=== PATIENT | female | born 1970 | race Caucasian/White ===

== ENCOUNTER → 2018-01-05 | Outpatient (CLI) | payer OTHER | LOC: PT 08:13 → EDSTATUS 08:30 → PT 08:30 | DX: Z01.818 Encounter for other preprocedural examination (principal); M25.561 Pain in right knee; M67.461 Ganglion, right knee ==

== ENCOUNTER 2018-02-18 08:00 | Outpatient (RCR) | payer OTHER | END 2018-02-18 08:30 | disposition home or self-care (01) | LOC: PT 08:00 | DX: Z47.89 Encounter for other orthopedic aftercare (principal) ==

== ENCOUNTER → 2018-05-25 | Outpatient (CLI) | payer OTHER | LOC: MAMMO 07:57 | DX: Z12.31 Encounter for screening mammogram for malignant neoplasm of breast (principal); Z98.890 Other specified postprocedural states ==

== ENCOUNTER → 2018-07-04 | Day surgery (SDC) | payer OTHER | LOC: MSO 07:45 | DX: Z12.11 Encounter for screening for malignant neoplasm of colon (principal); K63.5 Polyp of colon; F17.210 Nicotine dependence, cigarettes, uncomplicated | CPT/HCPCS: 00811; J2704; J7120 ==

== ENCOUNTER → 2019-02-13 | Day surgery (SDC) | payer OTHER | LOC: MSO 06:59 | DX: L02.31 Cutaneous abscess of buttock (principal); Z90.710 Acquired absence of both cervix and uterus; F17.210 Nicotine dependence, cigarettes, uncomplicated; Z88.6 Allergy status to analgesic agent; Z88.0 Allergy status to penicillin; Z91.018 Allergy to other foods | CPT/HCPCS: J2704; J3010; J7120 ==

== ENCOUNTER → 2019-02-22 | Outpatient (CLI) | payer OTHER | LOC: RAD 02-16 15:00 | DX: K60.3 Anal fistula (principal); N73.9 Female pelvic inflammatory disease, unspecified; L98.8 Other specified disorders of the skin and subcutaneous tissue | CPT/HCPCS: A9585 ==

== ENCOUNTER → 2019-06-29 | Outpatient (CLI) | payer OTHER ==
[2019-06-29 08:28] LABS: EOS # 0.1 (0.04-0.40); EOS % 1.4 % (1.0-5.0); HEMATOCRIT 47.9 % (37.0-47.0); HEMOGLOBIN 15.7 g/dL (12.5-16.0); LYMPH# 2.8 (1.50-4.00); MEAN CELL VOLUME 102 fl (78-100); MEAN CORPUSCULAR HEMOGLOBIN 33 pg (27-31); MEAN CORPUSCULAR HGB CONC 33 g/dL (33-37); MEAN PLATELET VOLUME 9.5 fl (7.4-10.4); MONO # 0.5 (0.20-0.80); NEU # 3.3 (1.40-6.50); PLATELET COUNT 275 K/mm3 (130-400); RED CELL DISTRIBUTION WIDTH 13.5 % (11.5-14.5); WHITE BLOOD COUNT 6.6 K/mm3 (4.8-10.8)
[2019-06-29 08:32] LABS: ALBUMIN 4.2 g/dL (3.5-5.0); POTASSIUM 4.3 mmol/L (3.5-5.1)
[2019-06-29 08:34] LABS: CALCIUM 9.4 mg/dL (8.3-10.5)
[2019-06-29 08:35] LABS: TOTAL PROTEIN 7.1 g/dL (6.4-8.3)
[2019-06-29 08:37] LABS: TOTAL BILIRUBIN 0.7 mg/dL (0.2-1.2)
== END ==
LOC: MAMMO 08:00
PROVIDERS: Family Medicine
DX: Z12.31 Encounter for screening mammogram for malignant neoplasm of breast (principal)

== ENCOUNTER → 2020-07-09 | Outpatient (CLI) | payer OTHER | LOC: MAMMO 13:40 | DX: Z12.31 Encounter for screening mammogram for malignant neoplasm of breast (principal) ==

== ENCOUNTER → 2020-07-15 | Outpatient (CLI) | payer OTHER | LOC: RAD 10:56 → MAMMO 11:30 | DX: M81.0 Age-related osteoporosis without current pathological fracture (principal); Z00.00 Encounter for general adult medical examination without abnormal findings; Z82.62 Family history of osteoporosis ==

== ENCOUNTER → 2021-07-23 | Outpatient (CLI) | payer OTHER ==
[~2021-07-23] MED LIST: CIPRO500 M1 PO; FISH OIL 1,2001 EAC4 PO; METRONIDAZOLE500 M1 PO; ONE-DAILY MULT1 EAC1 PO; SERTRALINE50 MG PO
== END ==
LOC: MAMMO 15:15
DX: Z12.31 Encounter for screening mammogram for malignant neoplasm of breast (principal); M81.0 Age-related osteoporosis without current pathological fracture

== ENCOUNTER 2021-07-27 07:30 | Emergency (ER) | payer OTHER ==
[~2021-07-27] VITALS: Ht 170.2 cm; Wt 79.5 kg
[2021-07-27] MEDS ORDERED: SERTRALINE50 MG PO (07:40)
[2021-07-27] MEDS ORDERED: FISH OIL 1,2001 EAC4 PO (07:41)
[2021-07-27] MEDS ORDERED: ONE-DAILY MULT1 EAC1 PO (07:41)
[2021-07-27] MEDS ORDERED: CIPRO500 M1 PO (09:05)
[2021-07-27] MEDS ORDERED: METRONIDAZOLE500 M1 PO (09:05)
[2021-07-27 09:12] VITALS: BP 126/82
== END 2021-07-27 09:12 | disposition home or self-care (01) ==
LOC: ED 07:30
DX: K61.1 Rectal abscess (principal); F17.210 Nicotine dependence, cigarettes, uncomplicated; Z88.0 Allergy status to penicillin

== ENCOUNTER → 2021-12-24 | Outpatient (CLI) | payer BC, OTHER ==
[2021-12-24 12:11] LABS: BASO # 0.03 K/mm3 (0.02-0.10); EOS # 0.07 K/mm3 (0.04-0.40); EOS % 0.8 % (1.0-5.0); HEMATOCRIT 46.7 % (37.0-47.0); HEMOGLOBIN 15.2 g/dL (12.5-16.0); MEAN CELL VOLUME 104 fl (78-100); MEAN CORPUSCULAR HEMOGLOBIN 34 pg (27-31); MEAN CORPUSCULAR HGB CONC 33 g/dL (33-37); MONO # 0.49 K/mm3 (0.20-0.80); NEU # 5.25 K/mm3 (1.40-6.50); PLATELET COUNT 266 K/mm3 (130-400); RED CELL DISTRIBUTION WIDTH 12.5 % (11.5-14.5); WHITE BLOOD COUNT 8.8 K/mm3 (4.8-10.8)
[2021-12-24 12:21] LABS: ALBUMIN 4.1 g/dL (3.5-5.0); POTASSIUM 4.1 mmol/L (3.5-5.1)
[2021-12-24 12:22] LABS: CALCIUM 9.3 mg/dL (8.3-10.5)
[2021-12-24 12:25] LABS: TOTAL BILIRUBIN 0.4 mg/dL (0.2-1.2)
== END ==
LOC: LAB 11:55
PROVIDERS: Family Medicine
DX: Z00.00 Encounter for general adult medical examination without abnormal findings (principal); E55.9 Vitamin D deficiency, unspecified; E78.5 Hyperlipidemia, unspecified; M81.0 Age-related osteoporosis without current pathological fracture; F41.1 Generalized anxiety disorder; J30.9 Allergic rhinitis, unspecified; R21 Rash and other nonspecific skin eruption

== ENCOUNTER → 2022-07-28 | Outpatient (CLI) | payer BC, OTHER | LOC: MAMMO 14:30 | DX: Z12.31 Encounter for screening mammogram for malignant neoplasm of breast (principal) ==

== ENCOUNTER → 2023-08-04 | Outpatient (CLI) | payer BC | LOC: MAMMO 09:49 | DX: Z12.31 Encounter for screening mammogram for malignant neoplasm of breast (principal) ==

== ENCOUNTER → 2023-08-04 | Outpatient (CLI) | payer BC ==
[2023-08-04 12:17] LABS: BASO # 0.04 K/mm3 (0.02-0.10); EOS # 0.04 K/mm3 (0.04-0.40); EOS % 0.5 % (1.0-5.0); HEMATOCRIT 46.5 % (37.0-47.0); HEMOGLOBIN 14.7 g/dL (12.5-16.0); LYMPH# 3.01 K/mm3 (1.50-4.00); MEAN CELL VOLUME 106 fl (78-100); MEAN CORPUSCULAR HEMOGLOBIN 33 pg (27-31); MEAN CORPUSCULAR HGB CONC 32 g/dL (33-37); MEAN PLATELET VOLUME 9.3 fl (7.4-10.4); MONO # 0.47 K/mm3 (0.20-0.80); NEU # 5.27 K/mm3 (1.40-6.50); PLATELET COUNT 238 K/mm3 (130-400); RED CELL DISTRIBUTION WIDTH 12.4 % (11.5-14.5); WHITE BLOOD COUNT 8.9 K/mm3 (4.8-10.8)
[2023-08-04 12:27] LABS: TOTAL PROTEIN 6.8 g/dL (6.4-8.3)
[2023-08-04 12:29] LABS: TOTAL BILIRUBIN 0.5 mg/dL (0.2-1.2)
== END ==
LOC: LAB 12:06
PROVIDERS: Nurse Practitioner
DX: E78.5 Hyperlipidemia, unspecified (principal); N95.1 Menopausal and female climacteric states; R63.8 Other symptoms and signs concerning food and fluid intake; E66.9 Obesity, unspecified